=== PATIENT | female | born 1985 | race Caucasian/White ===

== ENCOUNTER 2024-07-05 10:02 | Emergency (ER) | payer BC, SELFPAY ==
[2024-07-05 10:30] VITALS: BP 118/68
[2024-07-05 12:04] VITALS: BMI 21.5
[2024-07-05 12:14] LABS: % Basophils 0.9 % (0-2); % Eosinophils 1.4 % (0-6); % Immature Granulocytes 0.5 % (0-0.5); % Lymphocytes 19.1 % (20.5-51.1); % Monocytes 7.6 % (1.7-9.3); % Neutrophils 70.5 % (42.2-75.2); Absolute Basophils 0.1 10^3/uL (0-0.2); Absolute Eosinophils 0.1 10^3/uL (0-0.7); Absolute Lymphocytes 1.7 10^3/uL (1.2-3.4); Absolute Monocytes 0.7 10^3/uL (0.1-0.6); Absolute Neutrophils 6.2 10^3/uL (1.4-6.5); Hematocrit 37.2 % (37.0-47.0); Hemoglobin 11.8 g/dL (12.0-16.0); Mean Corp Hgb Conc. 31.7 g/dL (33.0-37.0); Mean Corpuscular Hgb 25.8 pg (27.0-31.0); Mean Corpuscular Volume 81.4 fL (81.0-99.0); Nucleated Red Blood Cells % 0 %; Platelet Count 336 10^3/uL (130-400); Red Blood Cell Count 4.57 10^6/uL (4.20-5.40); Red Cell Dist. Width 16.1 % (11.5-14.5); White Blood Cell Count 8.8 10^3/uL (4.8-10.8)
[2024-07-05 12:32] LABS: ALT (SGPT) 20 U/L (0-35); AST (SGOT) 29 U/L (14-36); Albumin 4.6 g/dl (3.5-5.0); Alkaline Phosphatase 90 U/L (38-126); Blood Urea Nitrogen 16 mg/dl (7-17); Calcium 9.8 mg/dl (8.4-10.2); Carbon Dioxide 23 mmol/L (22-30); Chloride 107 mmol/L (98-107); Estimated Creatinine Clearance 64 ml/min; Glucose 99 mg/dl (70-99); Lipase 472 U/L (23-300); Potassium 4.5 mmol/L (3.5-5.1); Sodium 141 mmol/L (135-145); Total Protein 8.8 g/dl (6.3-8.2); eGFR > 60.00
[2024-07-05 12:49] LABS: COVID-19 Antigen Negative (Negative)
[2024-07-05] MEDS: BENADRYL 12.5 MG IV (13:24)
[2024-07-05] MEDS: ZOFRAN 4 MG IV (13:26)
[2024-07-05] MEDS: DILAUDID 0.5 MG IV (13:27)
--- NOTE | 2024-07-05 13:58 | ED.GENMED ---
History of Present Illness
General
Chief Complaint: Vascular Access Problem
Time Seen by Provider: 07/05/24 11:44
History of Present Illness
History of Present Illness:
38-year-old female with history of Crohn's/ulcerative colitis status post numerous bowel surgeries including a total colectomy with ileostomy presents to the emergency department for evaluation of generalized abdominal pain and increased ostomy
output as well as nasal congestion, malaise, and left upper extremity discomfort. She has had a left upper extremity PICC line in place for the past 2+ weeks for TPN, states she has been having no issues with it until the past 24 hours when it
feels as though she cannot infuse through it. She is having axillary pain as well. No objective fever
Past History
Past History
ED Past Medical History: Other (Kidney stones, ulcerative colitis, Crohn's disease)
ED Past Surgical History: Bowel resection and Urological (rectal vaginal fistula)
Social History
Tobacco: Non-smoker
Personal:
Living: with family
Employment: Employed
Family History
Family History: Other (NonContributory)
Review of Systems
Review of Systems
Allergies reviewed?: Yes
All Other Systems: ROS reviewed and negative except as documented in HPI and ROS
Phy Exam
Physical Exam
Physical Exam:
GEN: Thin and Underweight
HEENT: Oral mucosa moist, no scleral icterus
Cardiac: Regular rate
Lung: No respiratory distress, no tachypnea, Lungs clear to auscultation bilaterally
Abdomen: Soft, generally nontender
MSK: No gross deformity or injuries
Skin: Good color, no pallor or jaundice, no rashes
Neuro: AO x3, moves all extremities freely
Psych: Calm, cooperative
Sepsis
Sepsis Screening
Sepsis Assessment: Sepsis Ruled Out
Sepsis Screen
Sepsis Screen: Sepsis Ruled Out
Date: 07/05/24
Time: 15:04
Course
Orders/Labs/Results
Orders:
Orders
07/05/24 11:53
CR Chest Single View Urgent
Comment:
Reason For Exam: chest pain, PICC line
US Periph Venous UPPER Ext LT Urgent
Comment:
Reason For Exam: LUE pain, PICC line
07/05/24 12:03
COVID-19 Antigen Urgent
Source: Nasal Swab
Complete Blood Count/With Diff Urgent
Comprehensive Metabolic Panel Urgent
Lipase Urgent
Influenza A+B Rapid Molecular Urgent
MIKE Source: Nasal Swab
Specimen Description:
07/05/24 13:10
HYDROmorphone [Dilaudid] 0.5 mg IV NOW STA
Ondansetron Injectable [Zofran] 4 mg IV NOW STA
07/05/24 13:22
Diphenhydramine [Benadryl] 50 mg .ROUTE .STK-MED ONE
07/05/24 13:24
Diphenhydramine [Benadryl] 12.5 mg IV NOW STA
Abnormal Lab Results
07/05/24
12:03
Hgb 11.8 L g/dL
(12.0-16.0)
MCH 25.8 L pg
(27.0-31.0)
MCHC 31.7 L g/dL
(33.0-37.0)
RDW 16.1 H %
(11.5-14.5)
MPV 11.0 H fL
(7.4-10.4)
Absolute Monos (auto) 0.7 H 10^3/uL
(0.1-0.6)
Lymphocytes % 19.1 L %
(20.5-51.1)
Total Protein 8.8 H g/dl
(6.3-8.2)
Lipase 472 H U/L
(23-300)
07/05/24 12:03
07/05/24 12:03
Vital Signs
Initial and Last Documented VS:
Initial Vital Signs
Temp Pulse Resp BP Pulse Ox
98.7 F 107 24 118/68 99
07/05/24 10:30 07/05/24 10:30 07/05/24 10:30 07/05/24 10:30 07/05/24 10:30
Last Documented Vital Signs
Temp Pulse Resp BP Pulse Ox
98.7 F 107 24 118/68 99
07/05/24 10:30 07/05/24 10:30 07/05/24 10:30 07/05/24 10:30 07/05/24 10:30
MDM/Problems Addressed
MDM/Problems Addressed:
Patient's workup is unrevealing. Ultrasound shows no evidence of clotted PICC line, I was able to infuse through both ports without difficulty. Given the respiratory symptoms and abdominal symptoms this is likely a self-limited viral syndrome,
discussed supportive care and return parameters
*Critical Care Note
Total Time (30-74mins, 75-104mins- exclusive of procedures): Not Applicable
ED Attending Note
-
Portions of this chart may have been created with voice recognition software.� Occasional wrong word or��sound alike� substitutions may have occurred due to the inherent limitations of voice recognition software.
Discharge Plan
Departure
Patient Disposition: Home (Routine Discharge)
Date of Disposition: 07/05/24
Time of Disposition: 13:58
Patient with high blood pressure during this ER visit?: No
Discharge Problem:
Acute viral syndrome
Instructions: Acute Diarrhea
Prescriptions:
New
oxycodone-acetaminophen [Percocet] 5-325 mg tablet
1 tab PO Q6HPRN PRN (Reason: pain) Qty: 8 0RF
ondansetron 4 mg tablet,disintegrating
4 mg PO TIDPRN PRN (Reason: nausea/vomiting) Qty: 10 0RF
No Action
acetaminophen 325 MG tablet
650 mg PO Q4HPRN PRN (Reason: mild pain)
tamsulosin 0.4 MG capsule
0.4 mg PO DAILYPRN PRN (Reason: stone symptoms)
eszopiclone [Lunesta] 3 MG tablet
3 mg PO HSPRN PRN (Reason: sleep)
lidocaine [Aspercreme (lidocaine)] 1 PATCH adhesive patch,medicated
1 patch topical DAILY 0RF
cyanocobalamin (vitamin B-12) 1,000 MCG tablet
1,000 mcg PO DAILY 0RF
gabapentin 600 MG/12 ML solution
100 mg PO Q8H Qty: 470 0RF
ferrous sulfate [FeroSul] 325 MG tablet
325 mg PO DAILY 0RF
psyllium husk [Metamucil Fiber Singles] 1 PACKET powder in packet
1 packet PO BID 0RF
Referrals:
Lauren Jensen MD [Family Provider] -
Interventions
Interventions:
*Risk Screen - Suicide Last Done: 07/05/24 12:09
*General Assessment Last Done: 07/05/24 12:09
*Neglect/Abuse Screening Last Done: 07/05/24 12:09
*ED- Fall Risk Assessment Last Done: 07/05/24 12:09
*Nursing Disposition Last Done: 07/05/24 14:12
Discharge Date and Time
Discharge Date/Time: 07/05/24 14:15
Print Language: WOLOF
== END 2024-07-05 14:15 | disposition home or self-care (01) ==
LOC: EMR 10:02
PROVIDERS: Physician Assistant; EMERGENCY PHYSICIAN Emergency Medicine; FAMILY PHYSICIAN Family Medicine
DX: B34.9 Viral infection, unspecified (principal); K50.90 Crohn's disease, unspecified, without complications; R10.84 Generalized abdominal pain; Z87.442 Personal history of urinary calculi; Z90.49 Acquired absence of other specified parts of digestive tract
CPT/HCPCS: 99284; 96374; 96375; 71045; 80053; 83690; 85025; 87502; 87811; 93971

== ENCOUNTER 2024-09-26 14:27 | Emergency (ER) | payer BC, SELFPAY ==
[2024-09-26 14:30] VITALS: BP 139/90
[2024-09-26 14:42] VITALS: BMI 21.4
--- NOTE | 2024-09-26 15:26 | ED.GENMED ---
History of Present Illness
General
Chief Complaint: Abdominal Pain
Time Seen by Provider: 09/26/24 15:14
History of Present Illness
History of Present Illness:
Patient is a 38-year-old woman with history of Crohn's/ulcerative colitis status post numerous bowel surgeries including colectomy with ileostomy presenting to the with left arm pain and abdominal pain. Patient states the past few days has been
having issues with her PICC line that she uses for TPN occasionally. She can still have food by mouth. Given the difficulty that she is been having with her PICC line she is actually scheduled for a tunneled catheter in the coming few days at [facility].
Her surgeon from [facility] told her to come to the emergency department today to have it evaluated to rule out a blood clot. She also states that today she developed some left axillary pain left-sided abdominal pain and some mild nausea. Normal ostomy
output. No urinary symptoms. No fevers chills. No fevers.
Past History
Past History
ED Past Medical History: Other (Kidney stones, ulcerative colitis, Crohn's disease)
ED Past Surgical History: Bowel resection and Urological (rectal vaginal fistula)
Social History
Tobacco: Non-smoker
Personal:
Living: with family
Employment: Employed
Family History
Family History: Other (NonContributory)
Phy Exam
Physical Exam
Physical Exam:
GENERAL: in no acute distress
HEENT: normocephalic, extraocular movements intact, moist oral mucosa
NECK: normal inspection
RESPIRATORY: no respiratory distress, clear to auscultation bilaterally
CARDIOVASCULAR: regular rate and rhythm
ABDOMEN/: soft, non-distended, mild tenderness epigastrium and left upper quadrant, no rebound or guarding
EXTREMITIES: non-tender, no edema/swelling, left upper extremity with PICC line in place, no obvious swelling, 2+ radial pulses
NEUROLOGIC: awake and alert, moves all extremities
SKIN: warm
Course
Orders/Labs/Results
Orders:
Orders
09/26/24 15:23
CT Abd/pelvis W Iv Cont Urgent
Comment:
Reason For Exam: upper abd/luq pain
Test Result ONCE
US Periph Venous UPPER Ext LT Urgent
Comment:
Reason For Exam: r/o clot, PICC line with difficulty flushing
09/26/24 15:24
Ondansetron Injectable [Zofran] 4 mg IV NOW STA
CR Chest - 2 Views Urgent
Comment:
Reason For Exam: picc line placement
09/26/24 15:27
Basic Metabolic Panel Urgent
Complete Blood Count/With Diff Urgent
Lipase Urgent
09/26/24 16:22
HYDROmorphone [Dilaudid] 0.25 mg IV NOW STA
09/26/24 16:23
Morphine Sulfate 2 mg .ROUTE .STK-MED ONE
09/26/24 16:25
Diphenhydramine [Benadryl] 12.5 mg IV NOW STA
09/26/24 16:31
HCG, Serum Qualitative Screen Routine
Comment: ORIGINIGAL SPECIMEN WAS HEMOLYZED
09/26/24 16:53
DC PICC Line [Discontinue IV Access] As Directed
Abnormal Lab Results
09/26/24
15:27
Hgb 10.2 L g/dL
(12.0-16.0)
Hct 33.0 L %
(37.0-47.0)
MCV 72.8 L fL
(81.0-99.0)
MCH 22.5 L pg
(27.0-31.0)
MCHC 30.9 L g/dL
(33.0-37.0)
RDW 16.4 H %
(11.5-14.5)
MPV 10.9 H fL
(7.4-10.4)
Absolute Monos (auto) 0.7 H 10^3/uL
(0.1-0.6)
Chloride 108 H mmol/L
(98-107)
Carbon Dioxide 21 L mmol/L
(22-30)
Glucose 111 H mg/dl
(70-99)
09/26/24 15:27
09/26/24 15:27
Vital Signs
Initial and Last Documented VS:
Initial Vital Signs
Temp Pulse Resp BP Pulse Ox
98.5 F 124 16 139/90 99
09/26/24 14:30 09/26/24 14:30 09/26/24 14:30 09/26/24 14:30 09/26/24 14:30
Last Documented Vital Signs
Temp Pulse Resp BP Pulse Ox
98.5 F 124 16 139/90 99
09/26/24 14:30 09/26/24 14:30 09/26/24 14:30 09/26/24 14:30 09/26/24 15:29
MDM/Problems Addressed
Differential Diagnosis Includes:
Patient is a 38-year-old woman with numerous bowel surgeries resulting in a total colectomy end ileostomy with PICC line in place for TPN presenting to the emergency department with nausea abdominal pain as well as left arm pain and concern for
difficulty flushing her PICC line. Vitals unremarkable exam does show mild tenderness to the abdomen but overall patient is well-appearing. Concern for blood clot versus malfunctioning PICC line. Will have IV team evaluate PICC line and obtain
chest x-ray for placement as well as an ultrasound to rule out blood clot. Regarding patient's abdominal pain could be pancreatitis, gastritis, electrolyte derangement. Less likely to be an acute abdomen. we will check blood work. Given her
numerous abdominal surgeries also obtain CT scan.
*Pulse Oximetry
SaO2: 99
Oxygen Mode of Delivery: Room air
Patient hypoxic: no (99)
*Critical Care Note
Total Time (30-74mins, 75-104mins- exclusive of procedures): Not Applicable
Update Note
Update Note:
Chest x-ray per my interpretation with looping of the PICC line. I did discuss with IV team as well as radiology. IV team will remove the PICC line.
Ultrasound is positive. Will start patient on Eliquis. Patient with no bleeding disorder and normal hemoglobin. Will start on Eliquis starter pack and give coupon. Patient advised to return for any bleeding problems.
CT scan does show adenomyosis/endometriosis. Patient aware. Will follow-up with gynecology.
Return precautions given. Will discharge at this time.
ED Attending Note
-
Portions of this chart may have been created with voice recognition software.� Occasional wrong word or��sound alike� substitutions may have occurred due to the inherent limitations of voice recognition software.
Discharge Plan
Departure
Patient Disposition: Home (Routine Discharge)
Date of Disposition: 09/26/24
Time of Disposition: 20:28
Patient with high blood pressure during this ER visit?: No
Discharge Problem:
DVT (deep venous thrombosis), PICC (peripherally inserted central catheter) removal
Instructions: Deep vein thrombosis (DVT) - ED discharge instructions
Prescriptions:
New
Eliquis DVT-PE Treat 30D Start 5 mg (74 tabs) tablets,dose pack
See Rx Instructions .ROUTE .COMPLEX Qty: 74 0RF
Rx Instructions:
orally per package directions
No Action
acetaminophen 325 MG tablet
650 mg PO Q4HPRN PRN (Reason: mild pain)
tamsulosin 0.4 MG capsule
0.4 mg PO DAILYPRN PRN (Reason: stone symptoms)
eszopiclone [Lunesta] 3 MG tablet
3 mg PO HSPRN PRN (Reason: sleep)
lidocaine [Aspercreme (lidocaine)] 1 PATCH adhesive patch,medicated
1 patch topical DAILY 0RF
cyanocobalamin (vitamin B-12) 1,000 MCG tablet
1,000 mcg PO DAILY 0RF
gabapentin 600 MG/12 ML solution
100 mg PO Q8H Qty: 470 0RF
ferrous sulfate [FeroSul] 325 MG tablet
325 mg PO DAILY 0RF
psyllium husk [Metamucil Fiber (aspartame)] 1 PACKET powder in packet
1 packet PO BID 0RF
oxycodone-acetaminophen [Percocet] 5-325 mg tablet
1 tab PO Q6HPRN PRN (Reason: pain) Qty: 8 0RF
ondansetron 4 mg tablet,disintegrating
4 mg PO TIDPRN PRN (Reason: nausea/vomiting) Qty: 10 0RF
Referrals:
Lauren Jensen MD [Family Provider, Family Practice]
Activity Restrictions/Additional Instructions:
You were seen in the Emergency Department today. You were diagnosed with a blood clot in your arm. Please take the blood thinner. I did provide you with a coupon. You will likely need it to be refilled so please follow-up with your primary care
doctor to have it refilled. Please watch out for signs of bleeding and come to the emergency department for further evaluation.
We did remove your PICC line. Please keep your appointment with [facility] as scheduled for tunneled catheter.
We would like for you to follow up with your primary care physician for further evaluation. If you experience fever, worsening of your symptoms, or develop any other new or concerning symptoms, please return to the Emergency Department immediately.
Please see the attached sheet for additional information.
Interventions
Interventions:
*Risk Screen - Suicide Last Done: 09/26/24 14:30
*General Assessment Last Done: 09/26/24 14:30
*Neglect/Abuse Screening Last Done: 09/26/24 14:30
*ED- Fall Risk Assessment Last Done: 09/26/24 14:30
*ED COVID-19 Vaccine History Last Done: 09/26/24 14:30
Discharge Date and Time
Print Language: GREEK
[2024-09-26 15:51] LABS: % Eosinophils 0.5 % (0-6); % Immature Granulocytes 0.1 % (0-0.5); % Lymphocytes 20.5 % (20.5-51.1); % Monocytes 9.2 % (1.7-9.3); % Neutrophils 68.7 % (42.2-75.2); Absolute Basophils 0.1 10^3/uL (0-0.2); Absolute Lymphocytes 1.6 10^3/uL (1.2-3.4); Absolute Monocytes 0.7 10^3/uL (0.1-0.6); Absolute Neutrophils 5.3 10^3/uL (1.4-6.5); Hemoglobin 10.2 g/dL (12.0-16.0); Mean Corp Hgb Conc. 30.9 g/dL (33.0-37.0); Mean Corpuscular Hgb 22.5 pg (27.0-31.0); Mean Corpuscular Volume 72.8 fL (81.0-99.0); Nucleated Red Blood Cells % 0 %; Red Blood Cell Count 4.53 10^6/uL (4.20-5.40); Red Cell Dist. Width 16.4 % (11.5-14.5); White Blood Cell Count 7.7 10^3/uL (4.8-10.8)
[2024-09-26 15:56] LABS: Blood Urea Nitrogen 10 mg/dl (7-17); Carbon Dioxide 21 mmol/L (22-30); Chloride 108 mmol/L (98-107); Estimated Creatinine Clearance 61 ml/min; Glucose 111 mg/dl (70-99); Sodium 138 mmol/L (135-145); eGFR > 60.00
--- NOTE | 2024-09-26 16:01 | VATNOTE ---
called to assess left dual lumen picc placed in June at [facility] for home TPN. Assessed lumens and one is not flushable whatsoever and the other lumen used for TPN with long extension on it, this VAT RN was able to flush and get scant blood return. Pt
for NEW PICC this coming Monday at [facility]. Home infusion company who had [employer]'d lumens earlier in week () recommended pt. to come to ER and have PICC pulled. Dr. Sandoval updated on assessment and informed her and pt. I was able to pull PICC after
US done and upon Dr. Sandoval's order. Will follow.
[2024-09-26 16:02] LABS: Mean Platelet Volume 10.9 fL (7.4-10.4); Platelet Count 244 10^3/uL (130-400)
[2024-09-26 16:04] LABS: Lipase 237 U/L (23-300)
[2024-09-26] MEDS: ZOFRAN 4 MG IV (16:07)
--- NOTE | 2024-09-26 16:30 | VATNOTE ---
In addition; noted that left arm is NOT swollen compared to right arm; pt stated she had pain that started this am in left axilla.
[2024-09-26] MEDS: BENADRYL 12.5 MG IV (16:32)
[2024-09-26] MEDS: DILAUDID 0.25 MG IV (16:32)
[2024-09-26 16:53] LABS: HCG, Serum Qualitative Screen Negative
--- NOTE | 2024-09-26 19:35 | VATNOTE ---
L DL PICC REMOVED PER PROTOCOL AND MD ORDER. TCL OF 35CM RECOVERED. NO BLEEDING AT EXIT SITE. OCCLUSIVE DRSG APPLIED. PT C/O PAIN IN L AXILLA. PCN AWARE OF INTERVENTION AND OUTCOME.
== END 2024-09-26 20:52 | disposition home or self-care (01) ==
LOC: EMR 14:27
PROVIDERS: EMERGENCY PHYSICIAN Student in an Organized Health Care Education/Training Program; FAMILY PHYSICIAN Family Medicine
DX: I82.B12 Acute embolism and thrombosis of left subclavian vein (principal); Z45.2 Encounter for adjustment and management of vascular access device; K50.90 Crohn's disease, unspecified, without complications; Z87.442 Personal history of urinary calculi; Z90.49 Acquired absence of other specified parts of digestive tract
CPT/HCPCS: 99284; 96374; 96375; 71046; 74177; 80048; 83690; 84703; 85025; 93971; Q9967